=== PATIENT | male | born 1955 | race Caucasian/White ===

== ENCOUNTER 2019-12-07 21:07 | Inpatient (IN) | payer OTHER, BC ==
[~2019-12-07] VITALS: Ht 180.3 cm; Wt 130.2 kg
--- NOTE | 2019-12-07 21:26 | NUR ---
PACIENTE ALERTA ORIENTADO X 3 REFIERE QIUE ESTABA CAMINANDO Y QUE PRESENTO DOLOR EN ESPALDA BAJA , DIFICULTAD PARA RESPIRAR Y DOLOR EN EL PECHO. SE REALIZA EKG Y SE PRESENTA A JENNIFER RUIZ.
--- NOTE | 2019-12-07 22:42 | NUR ---
PACIENTE MASCULINO ALERTA Y ORIENTADO, BAJO MEDIDAS ASEPTICAS SE CANALIZA CON ANGIO #20 EN [address] SE TRICIA MUESTRAS DE LAB[facility]ATORIOS Y SE ADMINISTRAN MEDICAMENTOS KARIME ORDENADOS. AL MOMENTO PACIENTE CONECTADO AL MONITOR CARDIACO PRESENTANDO VALORES NORMALES Y NO TIENE DOLOR DE PECHO. PENDIENTE REALIZAR CT DE PECHO CON CONTRASTE IV.
--- NOTE | 2019-12-08 03:39 | NUR ---
11:00PM SE RECIBE PTE ALERTA Y ORIENTADO X3 EN CRISTINA CON BARANDAS ELEVADAS CONECTADO A MONITOR CARDIACO Y OXIMETRIA. SE RECIBE PTE CON CANULA NASAL A 3L. SE RECIBE PTE CABALIZADO EN BRAZO IFTIKHAR AREA MARIA E DE EDEMA Y DE ENROJECIMIENTO. 11:30PM SE LE REALIZA CT KARIME ORDEN MEDICA. 12:00PM SE CANALIZA PTE EN BRAZO DERECHO AREA MARIA E DE EDEMA Y DE ENROJECIMIENTO. 1:09AM SE LE REALIZA EKG KARIME ORDEN MEDICA Y SE LE PRESENTA A . 1:45AM SE LE TRICIA MUESTRAS DE LAB. KARIME ORDEN MEDICA BAJO MEDIDAS ASEPTICAS. 2:00AM SE LE TEJAL B/P MANUAL EN 130/90 Y SE LE NOTIFICA A QUIEN ORDENA ADMINISTRAR LASIX 40MG IV STAT Y DRIP DE TRIDIL 50MG/250ML BAJANDO A 3ML/HR. SE ADMINISTRAN MEDICAMENTOS Y SE EDUCA A PTE SOBRE TRATAMIENTO MEDICO.
--- NOTE | 2019-12-08 07:38 | NUR ---
0710 SE RECIBE PT ALERTA Y ORIENTADO EN TIEMPO LUGAR Y PERSONA, CONECTADO A MONITOR CARDIACO Y OXIMETRIA DE PULSO CONTINUA. PTE AL MOMENTO CON CANULA NASAL A 3LT, SAO2 94%, MANTIENE BUEN PATRON RESPIRATORIO, AL MOMENTO MARIA E DE DOLOR DE PECHO. PT RECIBIENDO DRIP DE TRIDIL 50MG/250ML BAJANDO A 1ML/HR, CON BP 144/75, POR VENOPUNCION EN MANO RT, LA CUAL SE OBSERVA MARIA E DE EDEMA Y ERITEMA. SE ORIENTA A PT SOBRE TX, EL CUAL REFIERE ENTENDER. SE TITULA DRIP DDE TRIDIL A 3ML/HR Y SE MANTIENE A PTE EN OBSERVACION POR CAMBIOS, EN ESPERA DE SER EVALUADO POR DR THORPEO DE MEDICINA INTERNA.
== END 2019-12-10 21:17 | disposition left against medical advice (07) | DRG 291 ==
LOC: ER 21:07 → MEDJ 12-08 12:54
PROVIDERS: ADMIT Internal Medicine
PROC: B246ZZZ Ultrasonography of Right and Left Heart (ICD-10-PCS; principal; 2019-12-08)
PROC: BB24ZZZ Computerized Tomography (CT Scan) of Bilateral Lungs (ICD-10-PCS; 2019-12-08)
PROC: 4A12X4Z Monitoring of Cardiac Electrical Activity, External Approach (ICD-10-PCS; 2019-12-08)
PROC: C21G1ZZ Planar Nuclear Medicine Imaging of Myocardium using Technetium 99m (Tc-99m) (ICD-10-PCS; 2019-12-10)
DX: I11.0 Hypertensive heart disease with heart failure (principal); I50.21 Acute systolic (congestive) heart failure; I08.1 Rheumatic disorders of both mitral and tricuspid valves; R91.8 Other nonspecific abnormal finding of lung field; E66.09 Other obesity due to excess calories; J01.90 Acute sinusitis, unspecified